=== PATIENT | female | born 1950 | race Caucasian/White ===

== ENCOUNTER 2019-06-15 03:16 | Inpatient (IN) ==
--- NOTE | 2019-06-12 09:23 | EKG Report ---
Test Performed on : 06/12/2019 08:54:47 AM Test Reason : pat Blood Pressure : / mmHG Vent. Rate : 090 BPM Atrial Rate : 090 BPM P-R Int : 190 ms QRS Dur : 086 ms QT Int : 362 ms P-R-T Axes : 039 -15 015 degrees QTc Int : 442 ms Normal sinus rhythm. with sinus arrhythmia. Low voltage QRS Septal infarct , age undetermined Abnormal ECG When compared with ECG of 02-DEC-2017 07:11, AK interval has decreased Vent. rate has increased BY 31 BPM T wave amplitude has increased in Lateral leads Confirmed by Marc Marie MD ([id number]) on 06/13/2019 7:40:44 AM
[2019-06-12 09:30] LABS: BASO# 0.03 X1000 (0.0-0.2); BASO% 0.6 % (0.0-0.8); EOS# 0.05 X1000 (0.0-0.7); HEMATOCRIT 46.2 % (37.0-47.0); HEMOGLOBIN 14.9 g/dL (12.0-16.0); LYMPH# 0.81 X1000 (1.2-3.4); LYMPH% 16.8 % (20.5-51.1); MCH 33.3 PG (27-31); MCHC 32.3 g/dL (33-37); MCV 103.1 FL (81-99); MONO% 10.4 % (1.7-9.3); MPV 9.8 FL (7.4-10.4); NEUT# 3.43 X1000 (1.4-6.5); NEUT% 71.2 % (42.2-75.2); PLT 183 X1000 (130-400); RBC 4.48 XMIL (4.2-5.4); RDW 14.2 % (11.5-14.5); WBC 4.82 X1000 (4.8-10.8)
[2019-06-15] MEDS ORDERED: REGLAN ONE (05:38)
[2019-06-15] MEDS ORDERED: LR 1,000 ML ONE (05:38)
[2019-06-15] MEDS ORDERED: KEFZOL 1 GM/D5W 2 GM/100 ML IVPB ONE (05:38)
[2019-06-15] MEDS ORDERED: PEPCID ONE (05:39)
[2019-06-15] MEDS ORDERED: DIPRIVAN 1% ONE (06:38)
[2019-06-15] MEDS ORDERED: XYLOCAINE-MPF 2% ONE (07:18)
[2019-06-15] MEDS ORDERED: DILAUDID ONE ×3 (07:18→10:14)
[2019-06-15] MEDS ORDERED: ZOFRAN ONE (07:18)
[2019-06-15] MEDS ORDERED: QUELICIN (DOSE) ONE (07:18)
[2019-06-15] MEDS ORDERED: OFIRMEV 1000 MG/ISOTONIC SOLN 1,000 MG/100 ML BOTTLE ONE (07:18)
[2019-06-15] MEDS ORDERED: DECADRON ONE (07:18)
[2019-06-15] MEDS ORDERED: EPHEDRINE ONE (08:02)
[2019-06-15] MEDS ORDERED: ROBINUL ONE (08:17)
[2019-06-15] MEDS: MORPHINE ONE ×2 (10:51→15:55)
[2019-06-15] MEDS: OXY IR PO PRN ×2 (12:18→16:04)
--- NOTE | 2019-06-15 12:55 | OPERATIVE NOTE ---
PROCEDURE DATE: 06/15/2019 PREOPERATIVE DIAGNOSES: 1. Left Charcot ankle neuroarthropathy. 2. Left posttraumatic ankle osteoarthritis. 3. Left ankle instability. 4. Left subtalar instability. 5. Left hardware related pain to the ankle. POSTOPERATIVE DIAGNOSES: 1. Left Charcot ankle neuroarthropathy. 2. Left posttraumatic ankle osteoarthritis. 3. Left ankle instability. 4. Left subtalar instability. 5. Left hardware related pain to the ankle. PROCEDURES: 1. Left hardware removal of the ankle, (but deep). 2. Left bone graft major from the femur. 3. Left ankle fusion. 4. Left subtalar fusion. SURGEON: Dr. Arik Martin. BATCH TESTER: LEANNA Dash, who was an integral part of the case helping with all aspects of the case. She is helping to increase our OR efficiency greatly. ANESTHESIA: General with LMA. TOURNIQUET TIME: 130 minutes. IMPLANTS: [id number]. TTC nail with screws. DISPOSITION: To PACU, hemodynamically stable. INDICATION FOR PROCEDURE: Ms. Palomares is a 69-year-old female who fractured her ankle about a year and half ago. She underwent open reduction and internal fixation by me. She was actually doing well last year for awhile and then she was lost to follow-up for about a year and she came back here recently having a lot of ankle pain and swelling. 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 So, I discussed with her about a TTC fusion since she is neuropathic, and she expressed understanding and wished to proceed. DESCRIPTION OF PROCEDURE: Ms. Palomares was identified in the preoperative holding area. Left ankle was marked as correct surgical site. She was then wheeled to the operating room, placed supine on the operating table. All bony prominences were well padded. She was induced under general anesthesia. LMA was placed. The entire left lower extremity was prepped with chlorhexidine gluconate scrub and then ChloraPrep, and draped in normal sterile fashion. Surgical pause was performed. We identified the correct patient, correct side, and the correct procedure. Preop antibiotics were given. I started with an incision just proximal to the greater trochanter. Dissection was carried down. I got my guidewire in place on the tip of the greater trochanter at the superior aspect of the femur. I advanced it. Fluoroscopic imaging showed we had good position. Used my opening reamer and then used the Synthes TANNA and reamed the femur with a size 13 reamer to get bone graft. After we reamed it, then we closed that incision with 0 Vicryl for the deep layer, 2-0 Vicryl for the subcutaneous, and rah on the skin. I probably got about 25- 30 mL of bone graft from reaming her femur. We did combine that with some cancellous allograft and demineralized bone matrix. Proximally, we put on a sterile tourniquet at that point. Esmarch was used to exsanguinate the left lower extremity and tourniquet was inflated to 300 mmHg. We started with a medial incision. Dissection was carried down into that medial malleolus, having to make 2 incisions there to take out the screws, we took out the 2 medial malleolar screws. We had to dissect very deep to get there. She did have a lot of subcutaneous tissue and it was below the fascia. We then took out the screws and the plate as well. Once we got all the screws out having to use an osteotome to pry that plate off the bone and finally loosened it up enough so that we could get the plate out. That completed our hardware removal. I then made an anterior incision on the ankle. Dissection was carried down in between the tibialis anterior and the EHL. We avoided our neurovascular bundle and retracted it laterally. I came down onto the ankle joint. There was a lot of synovitic tissue that was there. I debrided all that synovitic tissue out, and then came right down on the ankle joint. I did not see any evidence of any purulence. I then cleaned everything out. There was a lot of bone up in the tibia, and used a curved curette to really clean all that out back to better bone. I then did the same thing on the talus. There was a lot of bone, more to the lateral aspect. I then really cleaned that out back to good healthy-appearing bone. I used a curette and rongeur to do all that cleaning out. Once we had everything nice and clean, we then irrigated everything copiously with normal saline. You could see that the bone did look really good and viable at that point. I then made an incision over the sinus tarsi area. Dissection was carried down. Just in front of the peroneal tendons, I came down on the subtalar joint. I then denuded all the cartilage off the subtalar joint, both the calcaneus and the talus, and then irrigated it out copiously with normal saline. We had good bony contact there as well. I then got all the bone graft that we had packed up in that tibial defect and at the ankle. I then positioned that ankle where we wanted it, where it was nice and squared up and plantigrade. I then got my guidewire in good position on AP and lateral views from the calcar all the way into the tibia. I made an incision on the plantar aspect of the foot. I drilled up into the tibia. I then put a ball-tip guidewire in and then reamed the tibia as well. I then put my nail in; we secured it with a subtalar screw first. We got good compression at our subtalar joint. I then put the calcaneal screw in and then put 2 screws proximally. I did not compress a lot the ankle joint because it is already compressed some, and I did not want to just push the talus up into that talar defect. The subtalar and ankle joint looked nice and compressed. Overall alignment looked good. Final images were taken which showed we had good position of the ankle joint and the subtalar joint. All the hardware looked to be in good position as well. That completed our ankle fusion and our subtalar fusion. I then closed everything in a layered fashion; 0 Vicryl for the deep layer, 2-0 Vicryl for the subcutaneous and rah on the skin. Adaptic, 4 x 4s, ABD, soft roll, posterior splint were applied. She was then wheeled from general anesthesia, moved to her own bed, and taken to PACU in stable condition. PLAN: Postop she will be nonweightbearing left lower extremity, and I will see her tomorrow morning. She will be admitted and we will plan on rehab. cc: Arik Martin MD
[2019-06-15] MEDS: MORPHINE IV PRN ×4 (13:21→20:57)
[2019-06-15] MEDS ORDERED: NS 500 ML ONE (15:50)
[2019-06-15] MEDS: KEFZOL 1 GM/D5W 1 GM/50 ML IVPB IV SCH ×2 (15:56→22:10)
[2019-06-15] MEDS: NEURONTIN PO SCH (20:57)
[2019-06-15] MEDS: PERIDEX MT SCH (20:57)
[2019-06-15] MEDS: METHADONE PO SCH (20:57)
[2019-06-16] MEDS: MORPHINE IV PRN ×6 (00:51→19:08)
[2019-06-16] MEDS: PRILOSEC PO SCH ×2 (05:19→06:59)
[2019-06-16] MEDS: LOVENOX SUBQ SCH (05:19)
[2019-06-16] MEDS: KEFZOL 1 GM/D5W 1 GM/50 ML IVPB IV SCH ×2 (05:20→06:59)
[2019-06-16] MEDS: OXY IR PO PRN ×4 (06:17→18:17)
[2019-06-16 06:30] LABS: HEMATOCRIT 35.5 % (37.0-47.0); HEMOGLOBIN 11.6 g/dL (12.0-16.0)
[2019-06-16 06:55] LABS: AGAP 9; BUN 11 mg/dL (8-22); CALCIUM 8.4 mg/dL (8.8-10.2); CHLORIDE 98 mmol/L (98-107); COSMO 272; CREATININE 0.6 mg/dL (0.5-0.9); ESTIMATED GFR > 60; GLUCOSE 141 mg/dL (70-104); POTASSIUM 4.5 mmol/L (3.5-5.1); SODIUM 135 mmol/L (136-145); TCO2 28 mmol/L (25-35)
[2019-06-16] MEDS: NORVASC PO SCH (10:48)
[2019-06-16] MEDS: NEURONTIN PO SCH ×3 (10:49→21:28)
[2019-06-16] MEDS: METHADONE PO SCH ×2 (10:49→21:28)
[2019-06-16] MEDS: PERIDEX MT SCH ×2 (10:49→21:28)
--- NOTE | 2019-06-16 15:17 | ORTHOPAEDICS CONSULTATION ---
DATE: 06/16/2019 SUBJECTIVE DATA: Ms. Palomares is sitting comfortably in bed. She states her pain is well controlled. She overall feels well. OBJECTIVE DATA: Left lower extremity exam, she is in a postoperative splint. The toes have good color and warmth. She does have decreased sensation to the toes due to her neuropathy. She has good sensation to the knee. She is able to raise the leg some. ASSESSMENT: Status post left ankle and subtalar fusion for Charcot. PLAN: The plan is for Ms. Palomares to go to a rehab center. She is going to have a lot of difficulty with ambulation and recovering from this left ankle. She is going to be nonweightbearing for 6 to 8 weeks. We will plan on her being in a cast that whole time. She is currently in a splint. Once she gets discharged to the rehab, we will plan on following up with her in the office in a week to 10 days. We will take that splint down and assess everything and plan on her going into a total contact cast at that point. She is going to go to rehab at [facility]. She is going to be on Lovenox for DVT prevention and Percocet for pain control. We will make sure we get those scripts for her. It looks like she is probably going to go Wednesday, but we would be okay with her going over the weekend if a bed becomes available. Dictated by LEANNA Dash for Arik Martin MD cc: LEANNA Dash MD [facility]
[2019-06-17] MEDS: MORPHINE IV PRN ×8 (00:19→22:47)
[2019-06-17] MEDS: OXY IR PO PRN ×3 (04:16→13:38)
[2019-06-17] MEDS: PRILOSEC PO SCH ×2 (05:52→06:31)
[2019-06-17] MEDS: LOVENOX SUBQ SCH (05:52)
[2019-06-17 05:56] LABS: HEMATOCRIT 35.2 % (37.0-47.0)
[2019-06-17 06:11] LABS: AGAP 8; BUN 9 mg/dL (8-22); CALCIUM 8.4 mg/dL (8.8-10.2); CHLORIDE 98 mmol/L (98-107); COSMO 269; CREATININE 0.7 mg/dL (0.5-0.9); ESTIMATED GFR > 60; GLUCOSE 94 mg/dL (70-104); SODIUM 135 mmol/L (136-145); TCO2 29 mmol/L (25-35)
--- NOTE | 2019-06-17 08:09 | ORTHOPAEDICS PROGRESS NOTE ---
DATE: 06/17/2019 SUBJECTIVE: The patient is a pleasant 69-year-old female who is 2 days status post left ankle and subtalar fusion for Charcot ankle neuropathy and posttraumatic ankle arthritis. She is currently resting comfortably. OBJECTIVE: On physical exam, patient's left lower extremity, her splint is intact. She has good capillary refill distally. She is able to flex and extend her toes. She has a chronic paresthesia in her toes secondary to neuropathy. IMPRESSION: Postoperative day #2 status post left ankle and subtalar fusion for Charcot. PLAN: At this point, Attorney has been consulted for discharge planning for inpatient rehabilitation. The patient be nonweightbearing left lower extremity. All questions were answered. cc: MD Arik Lam MD
[2019-06-17] MEDS: NORVASC PO SCH (08:32)
[2019-06-17] MEDS: NEURONTIN PO SCH ×3 (08:32→22:47)
[2019-06-17] MEDS: METHADONE PO SCH ×2 (08:32→22:47)
[2019-06-17] MEDS: PERIDEX MT SCH ×2 (08:32→22:47)
[2019-06-18] MEDS: MORPHINE IV PRN ×4 (01:22→13:38)
[2019-06-18] MEDS: LOVENOX SUBQ SCH (05:07)
[2019-06-18] MEDS: PRILOSEC PO SCH (06:37)
--- NOTE | 2019-06-18 08:09 | ORTHOPAEDICS PROGRESS NOTE ---
DATE: 06/18/2019 SUBJECTIVE: The patient is a pleasant, 69-year-old female, who is 3 days status post left ankle and subtalar fusion for a Charcot ankle neuropathy and posttraumatic arthritis per Dr. Martin. The patient has no complaints this morning. OBJECTIVE: On physical exam, the patient's left lower extremity chronic paresthesia, has good capillary refill distally. Able flex all of her toes. LABORATORY DATA: Her hemoglobin from yesterday was 11.0, and hematocrit was 35.2. IMPRESSION: Postoperative day #3, status post left ankle and subtalar fusion for Charcot. PLAN: At this point, the patient will be restricted with nonweightbearing, left lower extremity. Will anticipate discharge to rehab tomorrow. cc: MD Arik Lam MD MTDD
[2019-06-18] MEDS: PERIDEX MT SCH ×2 (08:31→20:13)
[2019-06-18] MEDS: NEURONTIN PO SCH ×3 (08:31→20:13)
[2019-06-18] MEDS: METHADONE PO SCH ×2 (08:32→20:13)
[2019-06-18] MEDS: NORVASC PO SCH (08:34)
[2019-06-18] MEDS: OXY IR PO PRN ×4 (10:57→23:05)
[2019-06-19] MEDS: OXY IR PO PRN ×4 (05:47→15:20)
[2019-06-19] MEDS: PRILOSEC PO SCH ×2 (05:48→07:45)
[2019-06-19] MEDS: LOVENOX SUBQ SCH (05:48)
--- NOTE | 2019-06-19 09:51 | Diag Imaging Result Doc PS360 ---
EXAM: CHEST-1 VIEW HISTORY: rehab TECHNIQUE: Chest single view COMPARISON: 12/02/2017 FINDINGS: The lungs are well expanded. The heart is not enlarged. Left pacemaker. The vessels are not distended. There are no infiltrates. No effusion identified. IMPRESSION: Negative exam. Electronically signed by Ranjit Walsh 06/19/2019 9:48 AM
[2019-06-19] MEDS: METHADONE PO SCH (09:56)
[2019-06-19] MEDS: PERIDEX MT SCH (09:56)
[2019-06-19] MEDS: NEURONTIN PO SCH ×2 (09:56→13:23)
[2019-06-19] MEDS: NORVASC PO SCH (09:57)
[2019-06-19] MEDS ORDERED: COLACE PO SCH (10:15)
--- NOTE | 2019-06-19 11:32 | ORTHOPAEDICS PROGRESS NOTE ---
DATE: 06/19/2019 SUBJECTIVE DATA: Ms. Palomares is lying comfortably in bed. She is 4 days status post left ankle and subtalar fusion. She is having minimal pain. She is ready to be discharged today. OBJECTIVE DATA: Left Lower Extremity Examination: She is in the surgical splint. It is clean, dry, and intact. She does have altered sensation to the toes related to her neuropathy. She has good capillary refill. She is able to flex all the toes. ASSESSMENT: Status post left ankle and subtalar fusion for Charcot neuropathy. PLAN: Plan is for Ms. Palomares to be discharged hopefully today to a rehab facility. She will be nonweightbearing to this left lower extremity. She will follow up with Dr. Martin in 1 week after her discharge. Hopefully, she will get to go today. We will plan on seeing her in the office next Wednesday to take the splint down and assess everything. Dictated by LEANNA Dash for Arik Martin MD cc: LEANNA Dash MD
[2019-06-19 13:34] VITALS: BP 132/79
--- NOTE | 2019-06-19 15:12 | DISCHARGE SUMMARY ---
ADMISSION DATE: 06/15/2019 DISCHARGE DATE: 06/19/2019 PREOPERATIVE DIAGNOSES: 1. Left Charcot ankle neuropathy. 2. Left posttraumatic ankle osteoarthritis. 3. Left ankle instability. 4. Left subtalar instability. 5. Diabetes type 2, uncontrolled, with peripheral neuropathy. DISCHARGE DIAGNOSES: 1. Left Charcot ankle neuropathy. 2. Left posttraumatic ankle osteoarthritis. 3. Left ankle instability. 4. Left subtalar instability. 5. Diabetes type 2, uncontrolled, with peripheral neuropathy. PROCEDURES: 1. Left hardware removal of the ankle. 2. Left bone graft from the femur. 3. Left ankle fusion. 4. Left subtalar fusion. HOSPITAL COURSE: The patient is a 69-year-old female who fractured ankle about a year and a half ago. She initially saw Dr. Martin and underwent open reduction, internal fixation of the ankle. She was doing well and then did not return for followup and lost contact with us. She came back into the office recently with increased ankle pain and swelling. The x-ray of the ankle at that time showed some avascular necrosis of the anterior lateral tibia which allowed the talus to ride up and the whole ankle to became unstable. Dr. Martin discussed with her about TTC fusion because of her neuropathy. She wished to proceed with that. Risks and benefits were discussed. The patient was taken the operating room on 06/15/2019. She tolerated the procedure well. She was transferred to recovery room. After satisfactory recovery, she was transferred to [address] [place] [address]. She has very little support at home and has had difficulty ambulating. She is nonweightbearing to this left lower extremity. We found it would be best for her to do a rehab stay. [employer] Worker Coordinator has been working on that. She does have a bed available at this time. PHYSICAL EXAMINATION: Current vital signs show temperature 98.4 degrees, pulse 75, respirations 18, blood pressure 132/79. She is 98% on room air. Her surgical splint is clean, dry, and intact. She is able to move the toes. She has good capillary refill. She has decreased sensation to the toes. DIAGNOSTIC DATA: Her left hemoglobin and hematocrit are 11 and 35.2. Her last BUN and creatinine are 9 and 0.7. At this time she is ready for discharge. DISCHARGE MEDICATIONS: Norvasc 10 mg p.o. daily, Lovenox 40 mg subcu every 24 hours and will continue at the rehab, Neurontin 600 mg p.o. t.i.d., methadone 10 mg p.o. b.i.d., Prilosec 40 mg p.o. daily, Percocet 5 mg p.o. every 4 hours as needed for pain. DISCHARGE DISPOSITION: Ms. Palomares is being discharged to [facility]. They will continue to work on her mobilization and transferring there. Again, she is nonweightbearing to this left lower extremity. The splint will remain in place. She will follow up with Dr. Martin in the office in 1 week. We will take the splint down to assess the incisions and go into a cast at that time. She will be nonweightbearing for up to 8 weeks. We did discuss postoperative signs and symptoms of infection. We did discuss not getting the splint wet and again remaining nonweightbearing. We will have her follow up in the office in a week. Should she have any questions or concerns, she is welcome to call the office. Dictated by LEANNA Dash for Arik Martin MD cc: LEANNA Dash MD [facility]
[2019-07-09] MEDS ORDERED: CYANOCOBALAMIN IM SCH (18:00)
== END 2019-06-19 16:35 | DRG 493 ==
LOC: SURHOLD 03:16 → 4N 11:22
PROVIDERS: ADMIT Orthopaedic Surgery; ATTEND Orthopaedic Surgery